=== PATIENT | female | born 1970 | race Caucasian/White ===

== ENCOUNTER 2022-05-25 02:23 | Emergency (ER) | payer OTHER ==
[~2022-05-25] VITALS: Ht 157.5 cm; Wt 77.1 kg
[2022-05-25 02:39] VITALS: BP 114/69
[2022-05-25 02:45] VITALS: BP 113/72
[2022-05-25 03:15] VITALS: BP 116/80
[2022-05-25 03:30] VITALS: BP 122/74
[2022-05-25 03:39] VITALS: BP 122/74
== END 2022-05-25 03:59 | disposition home or self-care (01) | DRG 605 ==
LOC: ED 02:23
DX: S80.01XA Contusion of right knee, initial encounter (principal); W01.0XXA Fall on same level from slipping, tripping and stumbling without subsequent striking against object, initial encounter